=== PATIENT | female | born 1955 | race Caucasian/White ===

== ENCOUNTER 2016-09-25 19:15 | Emergency (ER) | payer BC ==
[~2016-09-25] VITALS: Ht 167.6 cm; Wt 87.4 kg
[~2016-09-25 19:15] MED LIST: KEFLEX500 MG PO; MIRAPEX0.5 MG PO; Neurontin PO; Norco 5/325 PO; PRAMIPEXOLE DI1.5 M1 PO; PROTONIX40 MG PO; Paxil PO
[2016-09-25 19:51] LABS: HEMATOCRIT 39.5 % (36.0-46.0); MCH 27.5 PG (29.0-34.0); MCHC 31.1 G/DL (30.0-36.0); MCV 88.4 FL (83-99); PLATELET COUNT 243 K/uL (156-360); RBC DIS.WIDTH-CV 13.5 % (11.8-14.6); RBC DIS.WIDTH-SD 44.1 % (39-53); RED BLOOD COUNT 4.47 M/uL (3.80-5.20); WHITE BLOOD COUNT 5.2 K/uL (4.1-10.2)
[2016-09-25 19:59] LABS: CHLORIDE 105 mEq/L (99-109); SODIUM 140 mEq/L (136-147)
[2016-09-25 20:02] LABS: GLUCOSE 116 mg/dL (70-99)
[2016-09-25 20:03] LABS: ANION GAP 7 MEQ/L (2-14)
[2016-09-25 20:04] LABS: TOTAL BILIRUBIN 0.4 mg/dL (0.0-1.0)
[2016-09-25 20:05] LABS: ALKALINE PHOSPHATASE 104 IU/L (3-129); GFR ESTIMATE (CALCULATED) > 59 mL/min/
[2016-09-25 20:06] LABS: UREA NITROGEN (BUN) 15 mg/dL (9-23)
[2016-09-25 20:09] LABS: LIPASE 16 U/L (1.0-51.0)
[2016-09-25 20:24] LABS: ADD MIUA? YES; BILIRUBIN NEGATIVE; BLOOD NEGATIVE; COLOR YELLOW ((YELLOW)); GLUCOSE (STRIP) NEGATIVE; KETONES NEGATIVE; LEUKOCYTES TRACE; NITRITE NEGATIVE; PROTEIN (STRIP) NEGATIVE; SPECIFIC GRAVITY 1.024 (1.000-1.030)
[2016-09-25 20:38] LABS: BACTERIA NONE SEEN /HPF; EPITHELIAL CELLS RARE /HPF; MUCUS TRACE /LPF; RED BLOOD CELLS 0-5 /HPF (0-5); UCUL ADDED? NO; WHITE BLOOD CELLS 0-5 /HPF (0-5)
[2016-09-25] MEDS ORDERED: PERCOCET 5/31 TABLET PO (21:33)
[2016-09-25 21:54] VITALS: BP 158/85
== END 2016-09-25 21:50 | disposition home or self-care (01) ==
LOC: EME 19:15
DX: R10.9 Unspecified abdominal pain (principal); E11.9 Type 2 diabetes mellitus without complications; Z98.84 Bariatric surgery status; Z96.641 Presence of right artificial hip joint
CPT/HCPCS: 74176; 80053; 81003; 83690; 85027; 99281; 99285; J2270; J2405

== ENCOUNTER 2016-10-02 18:18 | Observation (INO) | payer BC ==
[~2016-10-02] VITALS: Ht 167.6 cm; Wt 85.5 kg
[~2016-10-02 18:18] MED LIST changes: +PERCOCET 5/31 TABLET PO
[2016-10-02 19:14] LABS: HEMATOCRIT 38.5 % (36.0-46.0); MCH 27.5 PG (29.0-34.0); MCHC 31.4 G/DL (30.0-36.0); MCV 87.5 FL (83-99); MEAN PLAT.VOLUME 9.9 uM^3 (9.5-12.4); PLATELET COUNT 244 K/uL (156-360); RBC DIS.WIDTH-CV 13.5 % (11.8-14.6); RBC DIS.WIDTH-SD 43.9 % (39-53); WHITE BLOOD COUNT 4.2 K/uL (4.1-10.2)
[2016-10-02 19:23] LABS: CHLORIDE 106 mEq/L (99-109); POTASSIUM 3.9 mEq/L (3.7-5.4); SODIUM 143 mEq/L (136-147)
[2016-10-02 19:25] LABS: GLUCOSE 106 mg/dL (70-99)
[2016-10-02 19:26] LABS: ANION GAP 11 MEQ/L (2-14)
[2016-10-02 19:27] LABS: TOTAL BILIRUBIN 0.4 mg/dL (0.0-1.0)
[2016-10-02 19:28] LABS: ALKALINE PHOSPHATASE 105 IU/L (3-129)
[2016-10-02 19:29] LABS: GFR ESTIMATE (CALCULATED) > 59 mL/min/
[2016-10-02 19:30] LABS: UREA NITROGEN (BUN) 14 mg/dL (9-23)
[2016-10-02 19:32] LABS: LIPASE 23 U/L (1.0-51.0)
[2016-10-02 19:35] LABS: TROP-I INTERPRETATION NEGATIVE; TROPONIN-I 0.01 ng/mL (0.0-0.30)
[2016-10-02 20:25] LABS: ADD MIUA? YES; BILIRUBIN NEGATIVE; BLOOD NEGATIVE; COLOR YELLOW ((YELLOW)); GLUCOSE (STRIP) NEGATIVE; KETONES 20; LEUKOCYTES SMALL; NITRITE NEGATIVE; PROTEIN (STRIP) NEGATIVE; SPECIFIC GRAVITY 1.023 (1.000-1.030); UROBILINOGEN 0.2 MG/DL (0.2-1.0)
[2016-10-02 20:28] LABS: BACTERIA RARE /HPF; EPITHELIAL CELLS RARE /HPF; MUCUS TRACE /LPF; RED BLOOD CELLS 0-5 /HPF (0-5); WHITE BLOOD CELLS 0-5 /HPF (0-5)
[2016-10-02] MEDS ORDERED: ZOFRAN4 MG PO (23:30)
[2016-10-03] MEDS ORDERED: HYDROCODON-ACE1 EAC9 PO (00:05)
[2016-10-03] MEDS ORDERED: CYMBALTA30 MG PO (00:05)
[2016-10-03] MEDS ORDERED: PRAMIPEXOLE DIHY1 MG PO (00:05)
[2016-10-03] MEDS ORDERED: OMEPRAZOLE20 MG PO (00:06)
[2016-10-03 07:36] VITALS: BP 128/60
[2016-10-03 11:28] VITALS: BP 106/57
== END 2016-10-03 14:35 | disposition home or self-care (01) ==
LOC: EME 18:18 → 5WEST 10-03 01:36 → EDOF 10-03 01:36 → 5WEST 10-03 07:22
PROVIDERS: Nurse Practitioner Family
DX: R10.9 Unspecified abdominal pain (principal); R11.2 Nausea with vomiting, unspecified; N39.0 Urinary tract infection, site not specified; E11.9 Type 2 diabetes mellitus without complications; I89.0 Lymphedema, not elsewhere classified; G43.909 Migraine, unspecified, not intractable, without status migrainosus; E66.9 Obesity, unspecified; Z98.84 Bariatric surgery status; Z96.641 Presence of right artificial hip joint; Z68.30 Body mass index [BMI] 30.0-30.9, adult
CPT/HCPCS: 74177; 80053; 81003; 83605; 83690; 84484; 85027; 87177; 87329; 87493; 93005; 99281; 99285; G0378; J1630; J1644; J1885; J2270; J2405; J7030; J7120; S0028

== ENCOUNTER 2017-03-23 01:09 | Emergency (ER) | payer BC ==
[~2017-03-23] VITALS: Ht 167.6 cm; Wt 91.2 kg
[~2017-03-23 01:09] MED LIST changes: +CYMBALTA30 MG PO; +HYDROCODON-ACE1 EAC9 PO; +OMEPRAZOLE20 MG PO; +PRAMIPEXOLE DIHY1 MG PO; +ZOFRAN4 MG PO
[2017-03-23] MEDS ORDERED: TRAMADOL HCL50 MG PO (02:52)
[2017-03-23 03:17] VITALS: BP 142/75
== END 2017-03-23 03:18 | disposition home or self-care (01) ==
LOC: EME 01:09
DX: S90.852A Superficial foreign body, left foot, initial encounter (principal); W45.8XXA Other foreign body or object entering through skin, initial encounter; Z98.84 Bariatric surgery status; Z96.649 Presence of unspecified artificial hip joint
CPT/HCPCS: 73630